=== PATIENT | female | born 1985 | race Caucasian/White ===

== ENCOUNTER 2022-02-16 10:38 | Outpatient (CLI) | payer OTHER, SELFPAY ==
--- NOTE | 2022-02-20 12:36 | WPDHOLTEREM ---
Holter/Event Monitor Holter/Event Monitor Date of procedure: 02/16/22 Holter/Event Procedure: 48 Hr Holter Monitor Indications: Tachycardia Conclusion: 1. 48 hour holter monitor on 02/16/22. 2. Underlying rhythm is sinus rhythm. HR range 46-143 bpm; average HR 80 bpm. 3. There are 58 premature supraventricular complexes, 2 supraventricular couplets and 1 supraventricular triplet. No supraventricular tachycardia. 4. No premature ventricular complexes. No ventricular tachycardia. 5. No sinoatrial or atrioventricular blocks. There is a 2.2 second pause at 01:58 due to sinus pause. 6. No symptoms available for correlation.
== END 2022-02-16 10:39 | disposition home or self-care (01) ==
LOC: ANHCARD 10:39
PROVIDERS: PCP Family Medicine; Visit Provider Nurse Practitioner
DX: R00.0 Tachycardia, unspecified (principal)
CPT/HCPCS: 93225; 93226

== ENCOUNTER 2023-04-22 09:55 | Day surgery (SDC) | payer OTHER, SELFPAY ==
[2023-04-08 11:23] VITALS: BMI 22.4
[2023-04-09 12:07] VITALS: BMI 22.1
[2023-04-22 10:54] VITALS: BP 110/92; PULSE 75; RESP 14; TEMP 36.8; O2SAT 100
[2023-04-22] MEDS: LACTATED RINGERS 1,000 ML 150 ML IV CONT (11:06)
--- NOTE | 2023-04-22 11:10 | P.HP_ITS ---
History of Present Illness History of Present Illness Consent: Risks, benefits, and alternatives have been discussed and questions answered. Patient agrees to proceed with procedure. Chief complaint: rectal bleeding Narrative: Leanna Nuñez is a 38 year old female Presents for colonoscopy. Patient reports that her current bowel habits alter between bowel movements every 3-4 days sometimes 2 a day. She did recently noticed some bright red blood per rec taryn. Typically with wiping. History is significant her father had celiac disease. See specific abdominal pain. Her weight has remained stable. Review of Systems Review of Systems: All systems reviewed & are unremarkable except as noted in HPI and below PMFSH Past Medical History Medical History History of endometrial biopsy 2021 Social History Social History Smoking status: Never smoker Alcohol intake: never Alcohol use details: socially Substance use: never Substance use type: does not use Lack of Transportation: No Lack of Food: Never True Current Housing: I Have Housing Concerned About Future Housing: No Difficulty Paying Gas/Electric Bills: No Difficulty Paying for Meds: No Currently Unemployed: No Education: Master's Degree or Higher Difficulty w/ Childcare or Family Care: No Living arrangements: with family Occupation/Education: occupation Gender identity (if verbalized by the patient): Female Spiritual care concerns: No Agree to blood products: Yes Meds Home Medications and Allergies Home Medications Medication Instructions Recorded Confirmed Type levonorgestrel-ethinyl estradiol 1 tablet PO DAILY 04/01/21 04/22/23 History 0.1 mg-20 mcg tablet (Lessina) multivitamin 1 tablet PO DAILY 05/20/21 04/22/23 History calcium carbonate 600 mg calcium 600 mg PO DAILY 04/06/22 04/22/23 History (1,500 mg) tablet metoprolol succinate 25 mg See Rx Instructions .Route 04/08/23 04/22/23 Rx tablet,extended release 24 hr .COMPLEX #14 tabs Allergies Allergy/AdvReac Type Severity Reaction Status Date / Time No Known Allergies Allergy Mild Verified 04/22/23 10:50 Vital Signs Vital Signs - 24 hr 04/22/23 10:54 Temperature 98.2 F Pulse Rate 75 Respiratory Rate 14 Blood Pressure 110/92 H Pulse Oximetry 100 Oxygen Delivery Room Air Exam Narrative: Physical exam reveals patient to be alert. Vital signs stable. HEENT exam is unremarkable. Patient is anicteric. Lungs are clear to auscultation and percussion. Heart is without murmur or extra sounds. Abdomen sounds are present soft nontender with no hepatosplenomegaly. Digital external rectal exam is normal. Assessment and Plan Assessment and plan (1) Rectal bleeding: Code(s): K62.5 - Hemorrhage of anus and rectum Status: Acute Assessment and Plan: Patient has occasional bright red blood per rectum. Plan for a high-fiber diet. Colonoscopy will be performed to further assess rectal bleeding source.
--- NOTE | 2023-04-22 11:26 | P.PNAN_ITS ---
Anes - Initial Pre Proc Eval Procedure: Operation Date: 04/22/23 12:00 Proposed Procedures p Colonoscopy - Camilo Almaguer MD Date/Time: 04/22/23 11:26 Surgeon: Camilo Almaguer MD Pre Op Diagnosis: rectal bleeding Patient Data Age: 38 Gender: F Height: 1.69 m Weight: 62.8 kg Last Vital Signs Temp 36.8 C 04/22/23 10:54 Pulse 75 04/22/23 10:54 Resp 14 04/22/23 10:54 BP 110/92 H 04/22/23 10:54 Pulse Ox 100 04/22/23 10:54 O2 Del Method Room Air 04/22/23 10:54 Allergies Allergy/AdvReac Type Severity Reaction Status Date / Time No Known Allergies Allergy Mild Verified 04/22/23 10:50 Home Medications Medication Instructions Recorded Confirmed Type levonorgestrel-ethinyl estradiol 1 tablet PO DAILY 04/01/21 04/22/23 History 0.1 mg-20 mcg tablet (Lessina) multivitamin 1 tablet PO DAILY 05/20/21 04/22/23 History calcium carbonate 600 mg calcium 600 mg PO DAILY 04/06/22 04/22/23 History (1,500 mg) tablet metoprolol succinate 25 mg See Rx Instructions .Route 04/08/23 04/22/23 Rx tablet,extended release 24 hr .COMPLEX #14 tabs Patient hx anesthesia problems: none Family hx anesthesia problems: none Results Review: All pre-operative results and documents have been reviewed as part of the pre- operative evaluation. [facility] Past Medical History Medical History (Updated 04/22/23 @ 11:27 by Manuelito Mendez MD) History of endometrial biopsy 2021 Tachycardia Social History Social History Smoking status: Never smoker Alcohol intake: never Alcohol use details: socially Substance use: never Substance use type: does not use Lack of Transportation: No Lack of Food: Never True Current Housing: I Have Housing Concerned About Future Housing: No Difficulty Paying Gas/Electric Bills: No Difficulty Paying for Meds: No Currently Unemployed: No Education: Master's Degree or Higher Difficulty w/ Childcare or Family Care: No Living arrangements: with family Occupation/Education: occupation Gender identity (if verbalized by the patient): Female Spiritual care concerns: No Agree to blood products: Yes Anes - Eval Final PreProcedure Day of Procedure 04/22/23 11:26 Patient weight: normal Heart: regular rate and rhythm Lungs: clear to auscultation Airway: Mallampati scale class II Neurological: alert and oriented Last oral intake: >/= 8 hours ASA classification: II Emergent: no Anesthetic plan: proceed Anesthesia type and monitoring: general GIVS and standard monitoring Results Review: All pre-operative results and documents have been reviewed as part of the pre- operative evaluation. Informed Consent: The patient's anesthetic plan and its attendant risks and benefits were d iscussed with the patient/family/POA. Questions were solicited and answers provided to the satisfaction of the patient/family/POA.
[2023-04-22 12:29] VITALS: BP 108/75; PULSE 86; RESP 18; O2SAT 100
[2023-04-22 12:39] VITALS: BP 104/82; PULSE 85; RESP 20; O2SAT 99
[2023-04-22 12:49] VITALS: BP 110/80; PULSE 67; RESP 20; O2SAT 100
--- NOTE | 2023-04-22 12:57 | WPDANESPN ---
Anes - Prog Note Post-Op Date/Time: 04/22/23 12:57 Cardiovascular status: normal Respiratory status: normal Airway patency: baseline Mental status: baseline Post-Op hydration status: normal Vital Signs: Last Vital Signs Temp 36.8 C 04/22/23 10:54 Pulse 85 04/22/23 12:39 Resp 20 04/22/23 12:39 BP 104/82 04/22/23 12:39 Pulse Ox 99 04/22/23 12:39 O2 Del Method Room Air 04/22/23 12:39 Pain Score (VAS): 0/10 I/O: Intake & Output 04/21/23 04/22/23 04/22/23 23:59 07:59 15:59 Intake Total 700 Balance 700 Patient Feedback: Patient satisfied with anesthetic care.
== END 2023-04-22 12:58 | disposition home or self-care (01) ==
PROVIDERS: PCP Family Medicine; Visit Provider Internal Medicine Gastroenterology
PROC: 0DJD8ZZ Inspection of Lower Intestinal Tract, Via Natural or Artificial Opening Endoscopic (ICD-10-PCS; CPT 45378; principal; 2023-04-22 12:00)
DX: K62.5 Hemorrhage of anus and rectum (principal); K64.8 Other hemorrhoids
CPT/HCPCS: 45378

== ENCOUNTER 2023-10-06 09:35 | Outpatient (CLI) | payer OTHER, SELFPAY ==
--- NOTE | ~2023-10-06 | US_ITS ---
EXAMINATION:US venous doppler LE RT INDICATION:Right leg pain TECHNIQUE: Multiple grayscale, color flow and Doppler images of the right lower extremity deep venous systems were obtained and reviewed. COMPARISON:No prior studies for comparison. FINDINGS: The common femoral, superficial femoral and popliteal veins demonstrate normal respiratory variation, augmentation and compressibility. Color flow is also seen within the posterior tibial, pe roneal, greater saphenous and profunda veins. IMPRESSION: 1: No lower extremity deep venous thrombosis. Reviewed, dictated and finalized at location B.
== END 2023-10-06 09:36 ==
PROVIDERS: PCP Nurse Practitioner; Visit Provider Nurse Practitioner
DX: M79.604 Pain in right leg (principal)
CPT/HCPCS: 93971

== ENCOUNTER 2024-02-09 19:30 | Emergency (ER) | payer OTHER, SELFPAY ==
[2024-02-09 19:41] VITALS: BP 127/88; PULSE 100; RESP 16; TEMP 37.4; O2SAT 99
--- NOTE | 2024-02-09 19:52 | ED.URI ---
HPI - URI/Sore Throat General Chief Complaint: Upper Respiratory Infection Stated Complaint: SOB/LOSING VOICE/CHILLS/FEVER/COUGH Time Seen by Provider: 02/09/24 19:41 Source: patient and RN notes reviewed Mode of arrival: ambulatory Limitations: no limitations History of Present Illness HPI Narrative: Patient presents today complaining of a 3 day history productive cough, headache, body aches, nausea, subjective fever mild shortness of breath with exertion. Denies sore throat, ear pain, nasal congestion and rhinorrhea. She has tried Carli D, NyQuil, and a humidifier with mild relief. Reports son and daughter had pneumonia last week. Related Data Home Medications Medication Instructions Recorded Confirmed levonorgestrel-ethinyl estradiol 1 tablet PO DAILY 04/01/21 02/09/24 0.1 mg-20 mcg tablet (Lessina) multivitamin 1 tablet PO DAILY 05/20/21 02/09/24 calcium carbonate 600 mg PO DAILY 04/06/22 02/09/24 Allergies Allergy/AdvReac Type Severity Reaction Status Date / Time No Known Allergies Allergy Mild Verified 02/09/24 19:44 Review of Systems Review of Systems: CONSTITUTIONAL: Denies chills, or sweats.+ body aches, fever EYES: Denies visual changes, redness, or discharge. ENT: Denies rhinorrhea, congestion, sore throat, or otalgia. CARDIOVASCULAR: Denies chest pain, palpitations, or edema. RESPIRATORY: + cough, shortness of breath with exertion GASTROINTESTINAL: Denies abdominal pain, vomiting, or diarrhea.+ nausea GENITOURINARY: Denies dysuria or hematuria. SKIN: Denies rash, itching, or wounds. MUSCULOSKELETAL: Denies back pain, joint pain, or myalgia. NEUROLOGIC: Denies numbness, tingling, or weakness.+ headache PSYCH: Denies depression or anxiety. [facility] Past Medical History Medical History History of endometrial biopsy 2021 Tachycardia Social History Social History Smoking status: Never smoker Alcohol intake: never Alcohol use details: socially Substance use: never Substance use type: does not use Lack of Transportation: No Lack of Food: Never True Current Housing: I Have Housing Concerned About Future Housing: No Difficulty Paying Gas/Electric Bills: No Difficulty Paying for Meds: No Currently Unemployed: No Education: Master's Degree or Higher Difficulty w/ Childcare or Family Care: No Living arrangements: with family Occupation/Education: occupation Gender identity (if verbalized by the patient): Female Spiritual care concerns: No Agree to blood products: Yes Comments At time of signature, I have reviewed and agree with nursing past medical, surgical, social and family history unless otherwise noted. Please see nursing chart for further information. There is no relevant family history pertinent to the presenting complaint Exam Narrative: GENERAL: Mildly ill-appearing, well-nourished, and in no acute distress. HEAD: Normocephalic, atraumatic. EYES: EOMI. No redness or drainage. Conjunctivae normal. ENT: Mucous membranes pink and moist. Nares clear. No rhinorrhea. TMs normal bilaterally. Throat normal. Uvula midline. NECK: Normal AROM. Supple. No lymphadenopathy. CHEST: No respiratory distress. Clear to auscultation. HEART: Regular rate and rhythm. No murmur appreciated. EXTREMITIES: Normal range of motion. No edema. SKIN: Warm, dry, no rash. Capillary refill normal. Normal skin turgor. NEURO: No focal deficits. Alert and oriented x3. Gait steady. PSYCH: Normal affect. No signs of depression or anxiety. Course Course Level of Care: Express Care Visit Vital Signs Vital signs: Vital Signs Temperature 99.3 F 02/09/24 19:41 Pulse Rate 100 02/09/24 19:41 Respiratory Rate 16 02/09/24 19:41 Blood Pressure 127/88 02/09/24 19:41 Pulse Oximetry 99 02/09/24 19:41 Temperature 99.3 F 10
== END 2024-02-09 19:57 | disposition home or self-care (01) ==
PROVIDERS: Emergency Provider Nurse Practitioner; PCP Family Medicine
DX: B34.9 Viral infection, unspecified (principal)
CPT/HCPCS: 99213; G0463

== ENCOUNTER 2024-02-23 15:30 | Outpatient (CLI) | payer OTHER, SELFPAY ==
--- NOTE | ~2024-02-23 | XR_ITS ---
XR chest 2V Ordering provider: Cari Guzman, MANAGER [employer] History: 39 years Female with . R06.02 - Shortness of breath . Comparison: None. FINDINGS: MEDIASTINUM: The cardiac silhouette is not enlarged. LUNGS: No infiltrates, effusions or pneumothorax. OTHER: No free air under the diaphragm. IMPRESSION: No acute cardiopulmonary pathology. Reviewed, dictated and finalized at location A.
== END 2024-02-23 15:31 | disposition home or self-care (01) ==
LOC: ANHIMG 15:32
PROVIDERS: PCP Nurse Practitioner; Visit Provider Nurse Practitioner
DX: R06.02 Shortness of breath (principal); R05.9 Cough, unspecified
CPT/HCPCS: 71046

== ENCOUNTER 2025-03-08 09:50 | Outpatient (CLI) | payer OTHER, SELFPAY ==
--- NOTE | ~2025-03-08 | US_ITS ---
ULTRASOUND ABDOMEN LIMITED (RIGHT UPPER QUADRANT) Clinical History: R10.11 - Right upper quadrant pain Comparison: None Technique: Right upper quadrant sonography Findings: Liver: Normal size. Normal echotexture. No intrahepatic biliary ductal dilatation. Normal hepatopedal flow main portal vein. Several small hyperechoic foci most consistent with hemangioma. Common Duct: 7 mm. Gallbladder: Stones. No wall thickening. No pericholecystic fluid. Negative sonographic Daniel's sign per technologist report. Pancreas: Unremarkable. IMPRESSION: 1. No acute findings. 2. Gallstones. No evidence of acute cholecystitis. Reviewed, dictated and finalized at location R.
== END 2025-03-08 09:51 | disposition home or self-care (01) ==
LOC: GOSHIMG 09:51
PROVIDERS: PCP Family Medicine; Visit Provider Family Medicine
DX: K80.20 Calculus of gallbladder without cholecystitis without obstruction (principal)
CPT/HCPCS: 76705

== ENCOUNTER 2025-04-30 20:20 | Emergency (ER) | payer OTHER, SELFPAY ==
--- NOTE | ~2025-04-30 | CT_ITS ---
EXAMINATION: CT abdomen pelvis w con DATE: 04/30/2025 22:51 INDICATION: Right upper quadrant abdominal pain. TECHNIQUE: Computed tomography (CT) of the abdomen and pelvis was performed with 100 mL Omnipaque 350 intravenous contrast. Automated exposure control and iterative reconstruction technique were employed. The dose-length product was 294.19 mGy-cm. COMPARISON: Ultrasound 03/08/2025 FINDINGS: The visualized portions of the lung bases demonstrate mild atelectasis. No pleural effusion. The heart size is normal. No pericardial effusion. There is a 6 mm cyst in the liver. The gallbladder is distended and demonstrates wall thickening and gallstones, consistent with acute cholecystitis. The spleen, pancreas, adrenal glands, and kidneys are normal. There are no dilated loops of bowel. The appendix is normal. There are no pathologically enlarged lymph nodes. There is no free intraperitoneal fluid. There is mild lumbar spondylosis. IMPRESSION: 1. Acute cholecystitis. Reviewed, dictated and finalized at location E. [facility] FILLER IMPRESSION: 1. Acute cholecystitis.
[2025-04-30 20:22] VITALS: BP 120/88; PULSE 81; RESP 14; O2SAT 100
[2025-04-30 22:15] LABS: BEDSIDEPREGUCG Negative (Negative)
[2025-04-30 22:16] LABS: Hematocrit 38.4 % (37.0-47.0); Hemoglobin 12.8 g/dL (12.0-15.0); Immature Granulocyte Percent A 0.4 % (0-0.5); Lymphocytes Absolute Auto 1.36 K/mm3 (0.9-3.2); Mean Corpuscular HGB Conc 33.3 g/dl (32-36); Mean Corpuscular Hemoglobin 33.4 pg (26-34); Mean Corpuscular Volume 100.3 fl (80-100); Nucleated Red Blood Cells Absolute Auto 0.000 K/mm3 (0.0-0.012); Nucleated Red Blood Cells Perc 0.0 % (0.0-0.2); Platelet Count Result 261 k/mm3 (150-375); Red Blood Count 3.83 M/mm3 (4.2-5.4); White Blood Count 5.7 K/mm3 (4.5-10.0)
[2025-04-30 22:21] LABS: Add Urine Microscopic? YES; Appearance Urine Clear (Clear); Glucose Urine UA Negative (Negative); Leukocyte Esterase Ur Negative LEU/UL (Negative); Nitrate Urine Negative (Negative); Non Pathogenic Casts 0-2; Specific Grav Ur 1.022 (1.001-1.035)
[2025-04-30 22:29] LABS: Alanine Aminotransferase 13 U/L (6-35); Albumin Level 4.2 g/dL (3.5-5.1); Alkaline Phosphatase 48 U/L (38-126); Anion Gap 7 mmol/L (4-12); Aspartate Amino Transferase 25 U/L (14-36); Bilirubin,Total 0.4 mg/dL (0.2-1.3); Blood Urea Nitrogen 10 mg/dL (7-17); Calcium 8.5 mg/dL (8.4-10.2); Carbon Dioxide 24 mmol/L (22-30); Chloride 104 mmol/L (98-107); Estimated Glomerular Filt Rate > 60; Glucose 107 mg/dL (65-110); Lipase 105 U/L (23-300); Potassium 4.1 mmol/L (3.4-5.0); Sodium 135 mmol/L (137-145); Total Protein 7.6 g/dL (6.3-8.2)
[2025-04-30 22:52] VITALS: BP 138/79; PULSE 66; RESP 14; TEMP 36.8; O2SAT 100
--- OUTSIDE RECORDS SUMMARY | 2025-04-30 22:59 | XMS_ITS | Clinical Summary ---
Author Organization [facility] Address [address] [place] [address] Phone Care Team Providers Care Sharepoint Developer Name Role Phone Arianna Cowan DO Primary Care Provider [phone] Allergies No known active allergies Medications MULTIVITAMIN ORAL Take by mouth every morning Active CALCIUM ORAL Take by mouth Active metoprolol XL (TOPROL-XL) 25 mg extended release tablet TAKE 1/2 TABLET (12.5 MG) BY MOUTH ONCE DAILY 03/17/2022 Active polycarbophil (FIBERCON) 625 mg tablet Take 1 tablet (625 mg total) by mouth daily Active simvastatin (ZOCOR) 5 mg tablet 05/29/2024 Active norethindrone-e thin estradioL (ORTHO-NOVUM 1-35 TAB,NORTREL 1-35 TAB) 1-35 mg-mcg per tabletIndicatio ns:PMDD (premenstrual dysphoric disorder) Take 1 tablet by mouth daily 84 tablet 3 12/06/2024 Active Active Problems Problem Noted Date Diagnosed Date Squeezing chest pain 07/27/2024 History of COVID-19 05/07/2022 Syncope and collapse 05/07/2022 Tachycardia, unspecified 05/07/2022 PMDD (premenstrual dysphoric disorder) 0 Irritant contact dermatitis 10/28/2017 Resolved Problems Problem Noted Date Diagnosed Date Resolved Date Pruritus vulvae 12/05/2024 12/05/2024 Assessment & Plan (12/05/2024 10:37 AM CDT): - Erythema of vulva in the setting of vaginal itching without odor or discharge. Speculum exam otherwise unremarkable. - GC/CT & TCG swabs collected, will treat as indicated. - Possible topical candidiasis of vulva. Recommend use of Monistat to treat symptoms. Lipid screening 05/07/2022 04/25/2024 Breast cyst, right 05/11/2019 2 Strep tonsillitis 08/19/2018 09/29/2021 Well woman exam with routine gynecological exam 03/21/2018 04/25/2024 Labial cyst 10/29/2017 09/29/2021 Adnexal tenderness 01/08/2017 2 Infection of urinary tract d uring in second trimester 09/29/2021 Overview (09/29/2021): UTI in , second trimester - (Added by TW Conv) Encounter for full-term unco mplicated delivery 09/29/2021 Overview (09/29/2021): (normal spontaneous vaginal delivery) - (Added by TW Conv) Impaired glucose tolerance 0 09/29/2021 Overview (09/29/2021): Abnormal glucose tolerance test - (Added by TW Conv) Immunizations Immunization Administration Dates Next Due DTaP 10/09/1988, 5,1983,05/14,1983 H1N1 All Forms 05/01/2009 Hep B Vaccine 02/25/1998,12/18/1997,11/16/1997 Influenza, Quadrivalent, Rec ombinant, Egg Free, Preservative Free, Intramuscular 02/13/2019 Influenza, Quadrivalent, Spl it, Preservative Free, Intramuscular 01/28/2020,02/11/2018 Influenza, Trivalent, IM (MDV) 4,01/26/2013,02/15/2012,02/14,01/29/2009,02/28/2008,02/17/2007 ,03/24/2006 Influenza, Trivalent, Preser vative Free, Intramuscular 02/01/2015 MMR 11/20/1992,04/19/1984 OPV 10/09/1988, 5,1983,05/14,1983 PPD TEST, UNSPECIFIED 10/03/2013 Pfizer SARS-CoV-2 Monovalent Vaccination (12+ Yrs) PURPLE 07/08/2020,06/10/2020 TD Preservative Free 11/16/1997 Tdap 08/29/2015,01/08/2012 Surgical History Surgery Date Site/Laterality Comments WISDOM TOOTH EXTRACTION 05/10/2000 - 05/09/2001 FOOT SURGERY 05/10/2013 - 05/09/2014 Right BREAST LUMPECTOMY Medical History Medical History Date Comments Raynaud's syndrome without gangrene Raynaud's disease - (Added by TW Conv) Infection of urinary tract d uring in second trimester UTI in , second trimester - (Added by TW Conv) Impaired glucose tolerance Abnor mal glucose tolerance test - (Added by TW Conv) History of gestational diabetes History of gestational diabetes mellitus (GDM) - (Added by TW Conv) Encounter for full-term unco mplicated delivery (normal spontaneous vag inal delivery) - (Added by TW Conv) Adnexal tenderness 01/08/2017 Arrhythmia Family History Medical History Relation Name Comments Heart disease Father Peyman Estrada Heart Disease - (Added by TW Conv) Liver cancer Maternal Grandfather Fibroids Maternal Grandmother Fibroids Mother Lexus Estrada Heart disease Mother Lexus Estrada Family history of cardiac disorder - (Added by TW Conv) Breast cancer Paternal Grandmother Anesthesia problems Neg Hx Ovarian cancer Neg Hx Relation Name Status Comments Father Peyman Estrada Alive Maternal Grandfather Maternal Grandmother Mother Lexus Estrada Alive Paternal Grandmother Social History Tobacco Use Types Packs/Day Years Used Date Smoking Tobacco: Never Passive Smoke Exposure: Never Smokeless Tobacco: Never Alcohol Use Standard Drinks/Week Comments No 0 (1 standard drink = 0.6 oz pur e alcohol) Social Connection and Isolation Panel Answer Date Recorded Frequency of Communication with Friends and Fami ly Not on file 05/11/2019 Frequency of Social Gatherings with Friends and Family Not on file 05/11/2019 Attends Zoroastrian Services Not on file 05/11 Active Member of Clubs or Organizations Not on f ile 05/11/2019 Attends Club or Organization Meetings Not on vikki e 05/11/2019 Marital Status 05/11/2019 AUDIT-C Answer Date Recorded Q1: How often do you have a drink containing alcohol? Never 12/06/2024 Q2: How many drinks containi ng alcohol do you have on a typical day when you are drinking? Patient does not drink Q3: How often do you have si x or more drinks on one occasion? 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 Not on file Not on file Not on file Obstetrics History Para Term AB IAB SAB Ectopic Multiple Livin g Live Births 2 2 2 2 2 Date Outcome GA Total Labor Labor/2nd/3rd Weight Sex Type Anes PTL Catie A1 A5 Name Clin Term Living Term Living Last Filed Vital Signs Vital Sign Reading Time Taken Comments Blood Pressure 120/76 12/06/2024 9:20 AM CDT Pulse 78 07/27/2024 8:03 AM CDT Temperature 36.8 C (98.2 F) 12/16/2020 11:20 AM CDT Respiratory Rate 15 05/07/2022 11:16 AM [employer]ENHOUSE [employer] Oxygen Saturation 99% 07/27/2024 8:03 AM CDT Inhaled Oxygen Concentration - - Weight 63.5 kg (140 lb) 12/22/2024 7:24 AM CDT Height 170.2 cm (5' 7) 12/06/2024 9:20 AM CDT Body Mass Index 21.93 12/06/2024 9:20 AM CDT Plan of Treatment Health Maintenance Due Date Last Done Comments Depression Screening 1983 Hepatitis C Screening 1983 Varicella Vaccines (1 of 2 - 13+ 2-dose series) 01/17/1996 HPV Vaccines (1 - 3-dose SCDM series) 2010 Covid-19 Vaccine ( - season) 2025 07/08/2020, 06/10/2020 Influenza Vaccine (#1) 2025 0, 02/13/2019, 02/11/2018, Additional history exists DTaP/Tdap/Td Vaccine (8 - Td or Tdap) 08/28/2025 08/29/2015, 01/08/2012, 11/16/1997, Additional history exists Cervical Cancer Screening 12/06/20252024, 12/06/2024, 03/19/2014 Regular Well Visit/Exam 18-64 12/06/2025 12/06/2024, 11/30/2023, 11/25/2022, Additional history exists Breast Cancer Screening-Mammogram 12/22/2025 12/22/2024, 12/21/2023, 12/17/2022, Additional history exists Hepatitis B Screening Completed 02/25/1998 , 12/18/1997, 11/16/1997 Pneumococcal vaccine <65 Aged Out No longer eligible based on patient's age to complete this topic Procedures Procedure Name Priority Date/Time Associated Diagnosis Comments SCREENING MAMMOGRAM BILATERAL W RAMANDEEP Schedule Routine, Read Routine (OP Routine) 12/22/2024 7:31 AM CDT Well woman exam HIGH RISK HPV DNA DETECTION WITH GENOTYPING Routine 12/06/2024 10:48 AM CDT Well woman exam from Last 3 Months or Most Recently Relevant to Health Maintenance Results * SCREENING MAMMOGRAM BILATERAL W RAMANDEEP (12/22/2024 7:31 AM CDT) Anatomical Region Laterality Modality Breast Bilateral Mammography Impressions 12/25/2024 12:11 PM CDT Bilateral No evidence of malignancy in either breast. OVERALL BI-RADS FINAL ASSESSMENT: 1 - Negative RECOMMENDATION: Recommend bilateral annual screening mammography. If supplemental screening is desired for heterogeneously dense breast tissue, consider breast MRI every 1-2 years. If breast MRI cannot be performed, contrast-enhanced mammography is an alternative. Narrative 12/25/2024 12:11 PM CDT EXAMINATION: SCREENING MAMMOGRAM BILATERAL W RAMANDEEP: 12/22/2024 COMPARISON: Relevant prior studies available at the time of interpretation were reviewed, including the most recent mammogram on: 12/21/2023. TECHNIQUE: Mammography was performed with 2D and 3D digital breast tomosynthesis (DBT) images. CAD was utilized. BREAST PARENCHYMAL COMPOSITION: The breasts are heterogeneously dense, which may obscure small masses. FINDINGS: Bilateral There is no suspicious mass, calcification, or architectural distortion in either breast. Clarissa Parker NP IMG MAMMO PROCEDURES Final Result * High Risk HPV DNA Detection with Genotyping (Molecular component) (12/06/2024 10:48 AM CDT) HPV HR 16 Not Detected Not Detected [facility] HPV HR 18 Not Detected Not Detected [facility] HPV HR Non 16/18 Not Detected Not Detected [facility] Comment: Interpretive Data Nucleic acid amplification for detection of high-risk Human Papilloma virus (HPV) is performed by the Cara Cristhian 6800 HPV test. This assay specifically detects HPV-16 and HPV-18 genotypes. The following HPV genotypes are detected as high-risk HPV: HPV-31, 33, 35, ,39, 45, 51, 52, 56, 58, 59, 66, and 68. This assay has been approved by the [place] Food and Drug Administration for detection of HPV in cervical specimens collected by a physician using an endocervical brush/spatula or cervical broom and placed in the ThinPrep Pap Test PreservCyt collection containers. The performance characteristics of this test have been verified by the [facility] Molecular Infectious Disease laboratory. Correlate with separately reported cytology results, as applicable. Interpretive data last revised 22 Endocervical 12/06/2024 10:4 8 AM CDT 12/08/2024 8:43 AM CDT Narrative [facility] - 12/08/2024 10:57 PM CDT Clinical history and diagnosis->screening Testing type->Screening Last menstrual period (date if known)->11/13/2024 Clarissa Parker NP LAB BODY FLUIDS AND STOOLS ORDERABLES Final Result [facility] Department [place] [address] [facility] from Last 3 Months or Most Recently Relevant to Health Maintenance Insurance [facility] [employer] INCLUDES THE [facility] HMO/PPO Address: [facility] [id number] [place] [address] [facility] [employer] [place] [id number] [facility] [employer] Care Teams Sharepoint Developer Relationship Specialty Start Date End Date Arianna Cowan DO PCP - General Family Medicine 07/01/22
--- OUTSIDE RECORDS SUMMARY | 2025-04-30 22:59 | XMS_ITS | Patient Health Record ---
Author Organization [facility] Address [address] [place], [place] [id number] Support Name Relationship Address Phone MARY MCBRIDE Guarantor Unknown Reason For Referral No Information Social History Social History Additional Details Category Social Info Options Details Migrated Social History Migrated Social History Smoking Status : Never smoked , History of tobacco use : Plan Of Treatment No Information Insurance Providers Payer Name Payer Address Payer Phone Subscriber Number Group Number Insured Name Patient Relationship to Insured Coverage Start Date Coverage End Date [facility] [address] [place], [place] [id number] EULOGIO PIKE Spouse - patient is the spouse of the insured
--- OUTSIDE RECORDS SUMMARY | 2025-04-30 22:59 | XMS_ITS | Encounter Summary ---
Author Organization [facility] Address [address] [place] [address] Phone Care Team Providers Care Professional System Administrator Name Role Phone Baltazar Saavedra MD Primary Care Provider + [phone] Arianna Cowan DO Primary Care Provider [phone] Baltazar Saavedra MD Primary Care Provider + [phone] Arianna Cowan DO Primary Care Provider [phone] Encounter Details Date Type Department Care Team (Latest Contact Info) Description 02/15/2017 Orders Only [facility] CONVERSION Scanning, Provider Social History Tobacco Use Types Packs/Day Years Used Date Smoking Tobacco: Never Comments Unknown Sex and Gender Information Value Date Recorded Sex Assigned at Not on file 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 Gender Identity Not on file Sexual Orientation Not on file documented as of this encounter Plan of Treatment Not on file documented as of this encounter Procedures Procedure Name Priority Date/Time Associated Diagnosis Comments OBSTETRIC/GYNECOLOGY ULTRASONOGRAPHY REPORT 02/15/2017 9:38 AM CDT documented in this encounter Results * OBSTETRIC/GYNECOLOGY ULTRASONOGRAPHY REPORT (02/15/2017 9:38 AM CDT) Anatomical Region Laterality Modality Ultrasound us Provider Scanning IMG OB US PROCEDURES Final Res ult documented in this encounter Visit Diagnoses Not on filedocumented in this encounter Care Teams Professional System Administrator Relationship Specialty Start Date End Date Baltazar Saavedra MD [address] [place] [address] PCP - General 01/08/17 12/11/20 Arianna Cowan DO [address] [place] [address] PCP - General 12/12/20 12/12/20 Baltazar Saavedra MD [address] [place] [address] PCP - General 12/13/20 06/30/22 Arianna Cowan DO [address] [place], [place] [id number] PCP - General Family Medicine 07/01/22 documented as of this encounter
[2025-04-30 23:26] VITALS: BP 114/75; PULSE 89; RESP 15; O2SAT 100
[2025-04-30 23:31] VITALS: BP 97/87; PULSE 89; RESP 19; O2SAT 99
[2025-05-01] VITALS (9 sets, daily range): BP systolic 86–141; BP diastolic 67–93; PULSE 68–100; RESP 15–24; TEMP 36.8; O2SAT 96–98
--- NOTE | 2025-05-01 03:21 | ED.ABDPAIN ---
HPI - Abdominal Pain General Chief Complaint: Abdominal Pain Stated Complaint: gallstones Time Seen by Provider: 04/30/25 22:11 History of Present Illness HPI narrative: 40-year-old female presenting with persistent right upper quadrant abdominal pain with nausea and diaphoresis since early this evening. Reports a history of cholelithiasis. Reports her last bowel movement was normal today. States she still has her appendix and gallbladder. Denies vomiting, fever/chills, urinary concerns, chest pain/shortness of breath. Related Data Home Medications ?Medication ?Instructions ?Recorded ?Confirmed ?Last Taken ?Type levonorgestrel-ethinyl estradiol 1 tablet PO DAILY 04/01/21 03/01/25 04/21/23 History 0.1 mg-20 mcg tablet (Lessina) multivitamin 1 tablet PO DAILY 05/20/21 03/01/25 04/19/23 History calcium carbonate 600 mg PO DAILY 04/06/22 03/01/25 04/19/23 History calcium polycarbophil 625 mg 1,250 mg PO BID 02/10/24 03/01/25 Unknown History tablet (Fiber (calcium polycarbophil)) cholecalciferol (vitamin D3) 50 50 mcg PO DAILY 10/31/24 03/01/25 Unknown History mcg (2,000 unit) capsule Allergies Allergy/AdvReac Type Severity Reaction Status Date / Time No Known Allergies Allergy Mild Verified 04/30/25 20:20 Review of Systems Review of Systems: All systems reviewed & are unremarkable except as noted in HPI and below PMFSH Past Medical History Medical History Tachycardia Surgical History Surgical History History of endometrial biopsy 2021 Social History Social History Smoking status: Never smoker Alcohol intake: never Alcohol use details: socially Substance use: never Substance use type: does not use Lack of Transportation: No Lack of Food: Never True Current Housing: I Have Housing Concerned About Future Housing: No Difficulty Paying Gas/Electric Bills: No Difficulty Paying for Meds: No Currently Unemployed: No Education: Master's Degree or Higher Difficulty w/ Childcare or Family Care: No Living arrangements: with family Occupation/Education: occupation Gender identity (if verbalized by the patient): Female Spiritual care concerns: No Agree to blood products: Yes Exam Narrative: GENERAL: Well-appearing, well-nourished, and in no acute distress. HEAD: Normocephalic, atraumatic. EYES: PERRLA and EOMI. ENT: Nares clear, no rhinorrhea or epistaxis. Mucous membranes moist. Oropharynx without tonsillar hypertrophy exudate or other lesions. Bilateral TMs pearly gomez non-bulging NECK: Supple. No adenopathy or masses. No carotid bruits or JVD CHEST: Clear to auscultation. No respiratory distress. No wheezes rales or rhonchi HEART: Regular rate and rhythm. No murmur heard. Normal peripheral pulses. ABDOMEN: Soft, nondistended, normal active bowel sounds. Mild TTP of RUQ. EXTREMITIES: Normal range of motion. No edema. SKIN: Warm, dry, no rash. NEURO: No focal deficits. Alert and oriented x3. PSYCH: Normal mood and affect Course Vital Signs Vital signs: Vital Signs Pulse Rate 81 04/30/25 20:22 Respiratory Rate 14 04/30/25 20:22 Blood Pressure 120/88 04/30/25 20:22 Pulse Oximetry 100 04/30/25 20:22 Oxygen Delivery Room Air 04/30/25 20:22 Temperature 98.2 F 05/01/25 03:57 Pulse Rate 90 05/01/25 03:57 Respiratory Rate 24 H 05/01/25 03:57 Blood Pressure 105/81 05/01/25 03:57 Pulse Oximetry 98 05/01/25 03:57 Oxygen Delivery Room Air 04/30/25 22:52 [facility] Narrative Medical decision making narrative: 40-year-old female presenting with persistent right upper quadrant abdominal pain with nausea and diaphoresis since early this evening. Reports a history of cholelithiasis. States her last bowel movement was normal today. Endorses she still has her appendix and gallbladder. Denies vomiting, fever/chills, urinary concerns, chest pain/shortness of breath. Upon my initial assessment patient appears nontoxic with stable vitals reporting that her pain has significantly improved since arriving. Labs are within normal limits. Imaging via [facility] noted mild gallbladder enlargement but to correlate clinically. Patient's pain resolved without intervention, she is afebrile, no leukocytosis, and no increase in LFTs. Differential diagnosis and treatment plan were discussed with the patient. Patient agrees with discussion and after shared medical decision making agrees with plan of care. All questions were answered to the patient's satisfaction. The patient is appropriate for outpatient treatment and follow-up with general surgery to discuss further workup and treatment. Differential Diagnosis Differential Diagnosis: Differential diagnostic considerations for acute abdominal pain include surgical abdominal etiology, ischemic bowel, inflammatory bowel disease, gastritis, PUD, gastroenteritis, cardiac etiology, appendicitis, diverticulitis, bowel obstruction, kidney stone, pyelonephritis, abdominal aortic aneurysm, pancreatitis, constipation, endometriosis. Medical Records I have reviewed the following patient records and this information was taken into consideration when formulating the assessment and plan.: previous labs, previous ER visits and previous hospitalizations Lab Data MDM Lab Attestation statement: I personally reviewed the patient's lab results. 04/30/25 22:09 04/30/25 22:09 Labs: Lab Results 04/30/25 04/30/25 Range/Units 22:09 22:13 WBC 5.7 (4.5-10.0) K/mm3 RBC 3.83 L (4.2-5.4) M/mm3 Hgb 12.8 (12.0-15.0) g/dL Hct 38.4 (37.0-47.0) % MCV 100.3 H (80-100) fl MCH 33.4 (26-34) pg MCHC 33.3 (32-36) g/dl RDW 12.0 (11.5-14.5) % Plt Count 261 (150-375) k/mm3 MPV 10.0 (7.4-10.4) fl Immature Gran % (Auto) 0.4 (0-0.5) % Neut % (Auto) 59.9 (45.5-73.1) % Lymph % (Auto) 23.9 (18.3-44.2) % Butts % (Auto) 12.1 H (2.6-8.5) % Eos % (Auto) 2.5 (0-4.4) % Baso % (Auto) 1.2 (0.2-1.2) % Lymph # (Auto) 1.36 (0.9-3.2) K/mm3 Butts # (Auto) 0.7 H (0.1-0.6) K/mm3 Eos # (Auto) 0.1 (0-0.3) K/mm3 Baso # (Auto) 0.1 (0.0-0.1) K/mm3 Abs Immat Gran (auto) 0.02 (0.00-0.031) K/mm3 Absolute Neuts (auto) 3.4 (1.3-6.7) K/mm3 Absolute Nucleated RBC 0.000 (0.0-0.012) K/mm3 Nucleated RBC % 0.0 (0.0-0.2) % Sodium 135 L (137-145) mmol/L Potassium 4.1 (3.4-5.0) mmol/L Chloride 104 (98-107) mmol/L Carbon Dioxide 24 (22-30) mmol/L Anion Gap 7 (4-12) mmol/L BUN 10 (7-17) mg/dL Creatinine 0.76 (0.7-1.0) mg/dL Estim Creat Clear Calc Not Reportable Estimated GFR > 60 (59 - ) Glucose 107 (65-110) mg/dL Calcium 8.5 (8.4-10.2) mg/dL Total Bilirubin 0.4 (0.2-1.3) mg/dL AST 25 (14-36) U/L ALT 13 (6-35) U/L Alkaline Phosphatase 48 (38-126) U/L Total Protein 7.6 (6.3-8.2) g/dL Albumin 4.2 (3.5-5.1) g/dL Lipase 105 (23-300) U/L Urine Color Yellow (Yellow) Urine Appearance Clear (Clear) Urine pH 5.0 (5.0-9.0) Ur Specific [place] 1.022 (1.001-1.035) Urine Protein Negative (Negative) mg/dL Urine Glucose (UA) Negative (Negative) mg/dL Urine Ketones Trace H (Negative) mg/dL Ur Blood (Man) Trace (Negative) Urine Nitrate Negative (Negative) Urine Bilirubin Negative (Negative) Urine Urobilinogen 0.2 (<2.0) mg/dL Leukocyte Esterase Rfl Negative (Negative) MARANDA/UL Urine RBC 0-2 (0-2) /hpf Urine WBC 0-5 (0-3) /hpf Ur Squamous Epith Cells None seen (Few) /hpf Urine Bacteria None seen /hpf Urine Casts 0-2 POC Urine HCG, Qual Negative (Negative) Imaging Data Radiologist's impression: ITS Impressions Abdomen/Pelvis CT 05/01/25 07:31 IMPRESSION: 1. Acute cholecystitis. Discharge Plan Discharge Clinical Impression: Biliary colic, Cholelithiasis Patient Disposition: Home Condition: Stable Instructions: Biliary Colic (ED), Gallstones (ED) Additional Instructions: Return to the ER if you experience fever, abdominal pain with nausea and vomiting, you are unable to keep down liquids or solids, blood in the stool, pain or burning with urination, blood in the urine or any other symptoms that are concerning to you. Take anti-inflammatories (Aleve, Ibuprofen, Naproxen, etc) and Tylenol as needed for pain. [place] diet. Advise looking into a low fat diet/diets specific to gallstones. Hydrate. Follow up with general surgery for further workup and treatment. Follow-up with primary care doctor for other general concerns. Patient Language: Czech Prescriptions: No Action levonorgestrel-ethinyl estrad [Lessina] 0.1-20 mg-mcg tablet 1 tablet PO DAILY calcium carbonate 600 mg calcium (1,500 mg) tablet 600 mg PO DAILY calcium polycarbophil [Fiber (calcium polycarbophil)] 625 mg tablet 1,250 mg PO BID multivitamin Tablet 1 tablet PO DAILY cholecalciferol (vitamin D3) 50 mcg (2,000 unit) capsule 50 mcg PO DAILY metoprolol succinate 25 mg tablet extended release 24 hr 12.5 mg PO DAILY Qty: 45 3RF simvastatin 5 mg tablet 5 mg PO DAILY Qty: 90 1RF Follow-up/Referrals: Cecy Hunter MD [Physician, General Surgery] Arianna Cowan DO [Primary Care Provider, Family Practice]
== END 2025-05-01 03:57 | disposition home or self-care (01) ==
PROVIDERS: Emergency Medicine; PCP Family Medicine
DX: K80.00 Calculus of gallbladder with acute cholecystitis without obstruction (principal)
CPT/HCPCS: 36415; 74177; 80053; 81001; 81025; 83690; 85025; 99284; Q9967